=== PATIENT | male | born 1975 | race Caucasian/White ===

== ENCOUNTER 2023-06-28 15:29 | Emergency (ER) | payer BC, OTHER ==
[2023-06-28] MEDS: Diphtheria,Pertussis(Acell),Tetanus Vaccine 0.5 ML Syringe IM ONE (17:09)
[2023-06-28] MEDS: Lidocaine 1% 10 ML MDV INJECT ONE (17:45)
== END 2023-06-28 18:48 | disposition home or self-care (01) ==
LOC: JD.ED 15:29
DX: S61.112A Laceration without foreign body of left thumb with damage to nail, initial encounter (principal); Z86.16 Personal history of COVID-19; Z23 Encounter for immunization; W31.2XXA Contact with powered woodworking and forming machines, initial encounter
CPT/HCPCS: 12001; 73140-26-FA; 73140-FA; 90471; 90715; 99283-25; J3490